=== PATIENT | female | born 1975 | race American Indian/Alaskan Native ===

== ENCOUNTER 2017-06-21 10:11 | Observation (INO) | payer SELFPAY ==
[2017-06-21 11:22] LABS: Basophils % (Auto) 0.4 % (0.0-1.8); Eosinophils % (Auto) 0.9 % (0.0-4.3); Hematocrit 42.8 % (30.3-42.9); Hemoglobin 13.8 gm/dl (10.1-14.3); Mean Corpuscular HGB Conc 32 % (30-34); Mean Corpuscular Hemoglobin 31 pg (28-32); Mean Corpuscular Volume 96 fl (79-97); Platelet Count 223 K/mm3 (140-440); Red Blood Count 4.48 M/mm3 (3.65-5.03); Red Cell Distribution Width 13.8 % (13.2-15.2); White Blood Count 7.5 K/mm3 (4.5-11.0)
[2017-06-21 11:44] LABS: Anion Gap 16 mmol/L; BUN/Creatinine Ratio 20; Blood Urea Nitrogen 12 mg/dL (7-17); Calcium 9.6 mg/dL (8.4-10.2); Carbon Dioxide 28 mmol/L (22-30); Chloride 102.1 mmol/L (98-107); Glucose 87 mg/dL (65-100); Potassium 4.9 mmol/L (3.6-5.0); Sodium 141 mmol/L (137-145)
--- NOTE | 2017-06-22 01:32 | Emergency Department Report ---
ED Chest Pain HPI - General Chief Complaint: Chest Pain Stated Complaint: CHEST PAIN Time Seen by Provider: 06/22/17 01:23 Source: patient Mode of arrival: Ambulatory Limitations: No Limitations - History of Present Illness Initial Comments: Patient is a 41-year-old female resents to the ER with chest pain 1 day and left arm numbness. Patient also complains of right lower leg pain/swelling.. She denies past medical history patient denies shortness of breath. Onset: during rest, during exertion Pain Location: substernal Pain Radiation: LUE Severity scale (0 -10): 8 Quality: tightness, aching, heaviness Improves With: nothing Worsens With: exertion Treatments Prior to Arrival: aspirin - Related Data Previous Rx's Medication Instructions Recorded Last Taken Type Azithromycin [Zithromax Z-JORGE] 250 mg PO DAILY #6 tablet 01/04/15 Unknown Rx HYDROcodone/APAP 5-325 [[place] 1 each PO Q6HR PRN #12 tablet 01/04/15 Unknown Rx 5/325] predniSONE [Deltasone] 20 mg PO BID #10 tab 01/04/15 Unknown Rx Allergies Allergy/AdvReac Type Severity Reaction Status Date / Time Penicillins Allergy Rash Verified 01/04/15 12:37 Heart Score - HEART Score History: Slightly suspicious EKG: Normal Age: < 45 Risk factors: No known risk factors Troponin: < normal limit HEART Score: 0 ED Review of Systems ROS: Stated complaint: CHEST PAIN Other details as noted in HPI Constitutional: denies: chills, fever Eyes: denies: eye pain, eye discharge, vision change ENT: as per HPI Respiratory: denies: cough, shortness of breath, wheezing Cardiovascular: chest pain Endocrine: no symptoms reported Gastrointestinal: denies: abdominal pain, nausea, diarrhea Genitourinary: denies: urgency, dysuria, discharge Musculoskeletal: back pain, other (patient complains of right lower extremity pain and swelling). denies: joint swelling, arthralgia Skin: denies: rash, lesions Neurological: denies: headache, weakness, paresthesias Psychiatric: denies: anxiety, depression ED Past Medical Hx - Past Medical History Previous Medical History?: Yes Additional medical history: Poss CVA - Surgical History Past Surgical History?: Yes Additional Surgical History: tubal ligation - Social History Smoking Status: Former Smoker Substance Use Type: Alcohol - Medications Home Medications: Home Medications Medication Instructions Recorded Confirmed Last Taken Type Azithromycin [Zithromax Z-JORGE] 250 mg PO DAILY #6 tablet 01/04/15 Unknown Rx HYDROcodone/APAP 5-325 [[place] 1 each PO Q6HR PRN #12 tablet 01/04/15 Unknown Rx 5/325] predniSONE [Deltasone] 20 mg PO BID #10 tab 01/04/15 Unknown Rx ED Physical Exam - General Limitations: No Limitations General appearance: alert, in no apparent distress - Head Head exam: Present: atraumatic, normocephalic - Eye Eye exam: Present: normal appearance - ENT ENT exam: Present: mucous membranes moist - Neck Neck exam: Present: normal inspection - Respiratory Respiratory exam: Present: normal lung sounds bilaterally. Absent: respiratory distress - Cardiovascular Cardiovascular Exam: Present: regular rate, normal rhythm. Absent: systolic murmur, diastolic murmur, rubs, gallop - GI/Abdominal GI/Abdominal exam: Present: soft, normal bowel sounds - Extremities Exam Extremities exam: Present: full ROM, normal capillary refill, other (trace swelling noted of the right lower extremity) - Back Exam Back exam: Present: normal inspection - Neurological Exam Neurological exam: Present: alert, oriented X3 - Psychiatric Psychiatric exam: Present: normal affect, normal mood - Skin Skin exam: Present: warm, dry, intact, normal color. Absent: rash ED Course Vital Signs 06/21/17 06/21/17 06/21/17 10:36 19:30 23:33 Temperature 98.5 F 98.1 F Pulse Rate 55 L 56 L Respiratory 18 18 Rate Blood Pressure 122/71 128/82 O2 Sat by Pulse 100 100 86 Oximetry 06/21/17 06/21/17 06/21/17 23:35 23:37 23:39 Temperature Pulse Rate 56 L 48 L Respiratory 17 16 Rate Blood Pressure 129/48 O2 Sat by Pulse 99 100 Oximetry 06/21/17 06/21/17 06/21/17 23:41 23:43 23:45 Temperature Pulse Rate 62 50 L 51 L Respiratory 12 16 17 Rate Blood Pressure 129/48 129/48 129/48 O2 Sat by Pulse 100 100 100 Oximetry 06/22/17 06/22/17 06/22/17 00:01 00:31 01:01 Temperature Pulse Rate 56 L 86 57 L Respiratory 17 18 16 Rate Blood Pressure 56/34 56/34 105/72 O2 Sat by Pulse 99 97 100 Oximetry ED Medical Decision Making - Lab Data Result diagrams: 06/21/17 11:07 06/21/17 11:07 - Medical Decision Making We'll admit the patient due to the elevated d-dimer unable to obtain vascular study tonight. We'll order a CTA to rule out PE. Patient will admitted to off by the hospitalist.discussed case with hospitalist hospitalist agreed to admit.. Critical care attestation.: If time is entered above; I have spent that time in minutes in the direct care of this critically ill patient, excluding procedure time. ED Disposition Clinical Impression: Chest pain, Leg pain, Leg swelling, Elevated d-dimer Disposition: OP ADMIT IP TO THIS HOSP Is pt being admited?: Yes Does the pt Need Aspirin: No Condition: Critical
[2017-06-22 04:23] LABS: Creatine Kinase MB 1.2 ng/mL (0.0-4.0)
[2017-06-22 04:26] LABS: Creatine Kinase 54 units/L (30-135)
--- NOTE | 2017-06-22 05:00 | History and Physical Report ---
History of Present Illness Date of examination: 06/22/17 Chief complaint: Chest pain History of present illness: Patient is a 41-year-old female resents to the ER with chest pain and right leg , pain 1 day and left arm numbness. She denies past medical history patient denies shortness of breath she denies any right leg swelling. She describes the pain as burning hot sensation no aggravation or relieving factors. She denies any headache nausea vomiting tingling numbness or weakness denies any shortness of breath or palpitations no fevers chills or cough no other GI or symptoms Past History Past Medical History: No medical history Past Surgical History: Other (tubal ligation) Social history: full code. denies: alcohol abuse, prescription drug abuse Family history: no significant family history Medications and Allergies Allergies Allergy/AdvReac Type Severity Reaction Status Date / Time Penicillins Allergy Rash Verified 01/04/15 12:37 Home Medications Medication Instructions Recorded Confirmed Last Taken Type Azithromycin [Zithromax Z-JORGE] 250 mg PO DAILY #6 tablet 01/04/15 Unknown Rx HYDROcodone/APAP 5-325 [[place] 1 each PO Q6HR PRN #12 tablet 01/04/15 Unknown Rx 5/325] predniSONE [Deltasone] 20 mg PO BID #10 tab 01/04/15 Unknown Rx Review of Systems All systems: negative (all 14 systems reviewed and found to be negative except as mentioned in HPI) Exam - Physical Exam Narrative exam: General - the patient is awake alert oriented to time place and person evidence of acute distress HEENT - head is atraumatic normocephalic pupils equal round reactive to light and accommodation extraocular movements intact oral mucosa moist oropharynx. Neck is supple no JVD no thyromegaly or lymphadenopathy no carotid bruit Heart - regular rate and rhythm no murmurs or gallops PMI not displaced Lungs - clear to auscultation bilaterally nonlabored breathing normal chest wall expansion Abdomen - is obese soft nondistended nontender normoactive bowel sounds no hepatosplenomegaly no abdominal masses or bruit appreciated Extremities - no cyanosis or edema Musculoskeletal system - normal range of movement all joints no obvious deformity or tenderness to palpation Neurological - grossly intact and nonfocal Skin - warm and dry no rashes or bruises Psychiatric - appropriate mood and affect Vascular - system no lymphadenopathy distal pulses 2+ bilaterally - Constitutional Vitals: Temp Pulse Resp BP Pulse Ox 98.1 F 57 L 16 105/72 100 06/21/17 19:30 06/22/17 01:01 06/22/17 01:01 06/22/17 01:01 06/22/17 01:01 Results - Labs CBC & Chem 7: 06/21/17 11:07 06/21/17 11:07 Labs: Laboratory Last Values WBC 7.5 K/mm3 (4.5-11.0) 06/21/17 11:07 RBC 4.48 M/mm3 (3.65-5.03) 06/21/17 11:07 Hgb 13.8 gm/dl (10.1-14.3) 06/21/17 11:07 Hct 42.8 % (30.3-42.9) 06/21/17 11:07 MCV 96 fl (79-97) 06/21/17 11:07 MCH 31 pg (28-32) 06/21/17 11:07 MCHC 32 % (30-34) 06/21/17 11:07 RDW 13.8 % (13.2-15.2) 06/21/17 11:07 Plt Count 223 K/mm3 (140-440) 06/21/17 11:07 Lymph % (Auto) 29.0 % (13.4-35.0) 06/21/17 11:07 [place] % (Auto) 8.4 % (0.0-7.3) H 06/21/17 11:07 Eos % (Auto) 0.9 % (0.0-4.3) 06/21/17 11:07 Baso % (Auto) 0.4 % (0.0-1.8) 06/21/17 11:07 Lymph # 2.2 K/mm3 (1.2-5.4) 06/21/17 11:07 [place] # 0.6 K/mm3 (0.0-0.8) 06/21/17 11:07 Eos # 0.1 K/mm3 (0.0-0.4) 06/21/17 11:07 Baso # 0.0 K/mm3 (0.0-0.1) 06/21/17 11:07 Seg Neutrophils % 61.3 % (40.0-70.0) 06/21/17 11:07 Seg Neutrophils # 4.6 K/mm3 (1.8-7.7) 06/21/17 11:07 D-Dimer 442.72 ng/mlDDU (0-234) H 06/22/17 01:47 Sodium 141 mmol/L (137-145) 06/21/17 11:07 Potassium 4.9 mmol/L (3.6-5.0) 06/21/17 11:07 Chloride 102.1 mmol/L (98-107) 06/21/17 11:07 Carbon Dioxide 28 mmol/L (22-30) 06/21/17 11:07 Anion Gap 16 mmol/L 06/21/17 11:07 BUN 12 mg/dL (7-17) 06/21/17 11:07 Creatinine 0.6 mg/dL (0.7-1.2) L 06/21/17 11:07 Estimated GFR > 60 ml/min 06/21/17 11:07 BUN/Creatinine Ratio 20 % 06/21/17 11:07 Glucose 87 mg/dL (65-100) 06/21/17 11:07 Calcium 9.6 mg/dL (8.4-10.2) 06/21/17 11:07 Total Creatine Kinase 54 units/L (30-135) 06/22/17 03:43 CK-MB (CK-2) 1.2 ng/mL (0.0-4.0) 06/22/17 03:43 CK-MB (CK-2) Rel Index 2.2 (0-4) 06/22/17 03:43 Troponin T < 0.010 ng/mL (0.00-0.029) 06/22/17 03:43 - Imaging and Cardiology Imaging and Cardiology: EKG showing normal sinus rhythm negative for acute ischemia or other arrhythmia Assessment and Plan Assessment and plan: Assessment and plan - * Chest pain * Right leg pain * Elevated d-dimer Plan - We'll admit the patient for 24-hour observation with cardiac telemetry Check serial cardiac enzymes Because the d-dimer is elevated did initially we will get a CT chest to rule out PE and right lower extremity Doppler ultrasound to rule out DVT meanwhile treat the patient with therapeutic Lovenox Monitor CBC electrolytes replace electrolytes when necessary as per protocol DVT Prophylaxis not needed as patient will be on therapeutic Lovenox GI prophylaxis with Protonix Monitor and follow the patient closely
[2017-06-22] MEDS ORDERED: MILK OF MAGNESIA PO PRN (05:03)
[2017-06-22] MEDS ORDERED: PERCOCET 5/325 PO PRN (05:03)
[2017-06-22] MEDS ORDERED: ALUM-MAG HYDROX-SIMETH 200-200-20MG/5ML PO PRN (05:03)
[2017-06-22] MEDS ORDERED: MORPHINE IV PRN ×2 (05:03)
[2017-06-22] MEDS ORDERED: AMBIEN PO PRN (05:03)
[2017-06-22] MEDS ORDERED: PROVENTIL IH PRN (05:03)
[2017-06-22] MEDS ORDERED: ZOFRAN IV PRN (05:03)
[2017-06-22] MEDS ORDERED: NITROSTAT SL PRN (05:03)
[2017-06-22] MEDS ORDERED: SODIUM CHLORIDE FLUSH SYRINGE 10 ML IV PRN (05:03)
[2017-06-22] MEDS ORDERED: TYLENOL PO PRN (05:03)
[2017-06-22] MEDS ORDERED: DULCOLAX PR PRN (05:03)
[2017-06-22 05:59] LABS: Basophils % (Auto) 0.3 % (0.0-1.8); Eosinophils % (Auto) 0.9 % (0.0-4.3); Hematocrit 40.2 % (30.3-42.9); Hemoglobin 13.1 gm/dl (10.1-14.3); Mean Corpuscular HGB Conc 33 % (30-34); Mean Corpuscular Hemoglobin 32 pg (28-32); Mean Corpuscular Volume 98 fl (79-97); Platelet Count 193 K/mm3 (140-440); Red Blood Count 4.11 M/mm3 (3.65-5.03); Red Cell Distribution Width 13.6 % (13.2-15.2); White Blood Count 8.2 K/mm3 (4.5-11.0)
[2017-06-22] MEDS ORDERED: NACL 0.9% 1000 ML 1,000 ML IV SCH (06:00)
[2017-06-22 06:19] LABS: Anion Gap 19 mmol/L; BUN/Creatinine Ratio 22; Blood Urea Nitrogen 13 mg/dL (7-17); Calcium 8.8 mg/dL (8.4-10.2); Carbon Dioxide 23 mmol/L (22-30); Chloride 104.5 mmol/L (98-107); Glucose 88 mg/dL (65-100); Potassium 3.9 mmol/L (3.6-5.0); Sodium 143 mmol/L (137-145)
[2017-06-22] MEDS ORDERED: NACL ONE (08:20)
--- NOTE | 2017-06-22 09:08 | Cat Scan Report ---
FINAL REPORT EXAM: CT ANGIO CHEST HISTORY: chest pain , elevated d-dimer TECHNIQUE: CT imaging obtained through the chest in pulmonary angiographic phase following intravenous administration of contrast. Transaxial, Coronal and sagittal reformats with maximal intensity projections are provided. PRIORS: None. FINDINGS: Normal caliber main pulmonary artery. Well opacified pulmonary arterial tree. No pulmonary embolism. No pericardial effusion. Thoracic aorta is normal in course and caliber. No periaortic fluid or stranding. No pneumothorax, effusion or focal airspace disease. A posterior right lower lung 4 millimeter solid-appearing nodule is present on axial image 61. The central airways are patent. No bronchiectasis. Imaged portion of the upper abdomen is unremarkable. 30 x 38 millimeter probable other right breast cyst is noted on axial image 50. Inferior right breast 15 millimeter cyst on axial image 60 and 17 millimeter posterior depth left breast cyst on axial image 56 are also seen. No acute bony abnormality or worrisome osseous lesions identified. IMPRESSION: No pulmonary embolism or other acute finding. Right and left cystic breast lesions. Correlation with most recent mammogram is requested. Solid-appearing 3-4 millimeter posterior right pulmonary nodule is probably benign and in the absence of smoking history or other known malignancy, no follow-up is needed.
[2017-06-22] MEDS ORDERED: LOVENOX SUB-Q SCH (10:00)
[2017-06-22 11:48] VITALS: BP 104/55
--- NOTE | 2017-06-22 13:12 | Discharge Summary ---
Providers - Providers Date of Admission: 06/22/17 05:03 Date of discharge: 06/22/17 Attending physician: KARL NICHOLAS MD Primary care physician: [facility] Hospitalization Reason for admission: chest pain Condition: Stable Pertinent studies: CTA chest negative for PE, venous Doppler ultrasound of the leg negative for DVT Hospital course: History of present illness: Patient is a 41-year-old female resents to the ER with chest pain and right leg pain 1 day. No significant past medical history. patient denies shortness of breath she denies any right leg swelling. She describes the pain as burning, hot sensation no aggravation or relieving factors. She denies any headache nausea vomiting tingling numbness or weakness denies any shortness of breath or palpitations no fevers, chills. 3 sets of cardiac enzymes were negative, EKG negative for acute ischemia, CTA chest negative for PE, Doppler ultrasound negative for DVT. Patient's pain subsided. Patient was hemodynamically stable at the time of discharge. Patient 's questions and concerns were addressed at the bedside. Patient was discharged home with advice to have follow-up with her primary care physician. Disposition: DC- TO HOME OR SELFCARE Time spent for discharge: 31 minutes - Discharge Diagnoses (1) Chest pain Status: Acute Qualifiers: Chest pain type: C Ischemic chest pain type: I (2) Elevated d-dimer Status: Acute (3) Leg pain Status: Acute Qualifiers: Laterality: L Core Measure Documentation - Palliative Care Palliative Care/ Comfort Measures: Not Applicable - Core Measures Any of the following diagnoses?: none Exam - Physical Exam Narrative exam: Not in cardiopulmonary distress. The patient is obese. Vital signs as documented. Head exam is unremarkable. No scleral icterus . Neck is without jugular venous distension, thyromegaly, or carotid bruits. Lungs are clear to auscultation. Cardiac exam reveals regular rate and Rhythm. First and second heart sounds normal. No murmurs, rubs or gallops. Abdominal exam reveals normal bowel sounds, no masses, no organomegaly and no aortic enlargement. Extremities are nonedematous and both femoral and pedal pulses are normal. FEEDER DRIVER: Alert and oriented 3. No focal weakness. - Constitutional Vitals: Temp Pulse Resp BP Pulse Ox 98.9 F 64 16 104/55 99 06/22/17 11:47 06/22/17 11:47 06/22/17 11:47 06/22/17 11:47 06/22/17 11:47 Plan Activity: no restrictions Weight Bearing Status: Full Weight Bearing Diet: low fat, low cholesterol Follow up with: PRIMARY CARE, [Primary Care Provider] - 7 Days
[2017-06-23] MEDS ORDERED: ECOTRIN PO SCH (10:00)
--- NOTE | 2017-06-24 14:30 | Vascular Lab Report ---
LOWER EXTREMITY VENOUS DUPLEX: REASON FOR EXAM: Swelling of the lower extremities. COMMENTS ON THE RIGHT: All veins visualized are freely compressible without evidence of internal echogenicity. Flow is spontaneous and phasic throughout. COMMENTS ON THE LEFT: All veins visualized are freely compressible without evidence of internal echogenicity. Flow is spontaneous and phasic throughout. IMPRESSION: No evidence of acute or chronic deep venous thrombosis in either lower extremity.
== END 2017-06-22 15:07 | disposition home or self-care (01) ==
LOC: ED 10:11 → 3A 06-22 05:03
PROVIDERS: ADMIT Internal Medicine Geriatric Medicine; ATTEND Internal Medicine
DX: R07.2 Precordial pain (principal); M79.604 Pain in right leg; M79.89 Other specified soft tissue disorders; R79.89 Other specified abnormal findings of blood chemistry; M54.9 Dorsalgia, unspecified; Z98.51 Tubal ligation status; Z87.891 Personal history of nicotine dependence
CPT/HCPCS: 36415; 71275; 80048; 80061; 82550; 82553; 83036; 84484; 85025; 85379; 93005; 93010; 93970; 96372; 99285; G0378; J1650; Q9967